=== PATIENT | male | born 1980 | race Two or more races ===

== ENCOUNTER 2023-05-17 08:17 | Outpatient (CLI) | payer OTHER ==
[~2023-05-17 08:17] MED LIST: CIPRO500 MG PO; PEPCID40 MG PO; ZOFRAN4 MG PO
== END 2023-05-17 08:28 | disposition home or self-care (01) ==
LOC: MRI 08:17
PROVIDERS: ATTEND Radiology Vascular & Interventional Radiology
DX: M50.20 Other cervical disc displacement, unspecified cervical region (principal)
CPT/HCPCS: 72141

== ENCOUNTER 2023-06-10 07:55 | Outpatient (CLI) | payer OTHER | END 2023-06-10 08:02 | disposition home or self-care (01) | LOC: RAD 07:55 | PROVIDERS: ATTEND Neurological Surgery | DX: M48.02 Spinal stenosis, cervical region (principal) ==

== ENCOUNTER 2023-12-08 12:09 | Outpatient (CLI) | payer OTHER | END 2023-12-08 12:15 | disposition home or self-care (01) | LOC: RAD 12:09 | PROVIDERS: ATTEND Neurological Surgery | DX: M48.02 Spinal stenosis, cervical region (principal) ==

== ENCOUNTER 2024-06-10 08:06 | Outpatient (CLI) | payer OTHER | END 2024-06-10 08:50 | disposition home or self-care (01) | LOC: RAD 08:06 | PROVIDERS: ATTEND Neurological Surgery | DX: M48.02 Spinal stenosis, cervical region (principal) ==